=== PATIENT | male | born 1990 | race Caucasian/White ===

== ENCOUNTER 2021-07-25 15:37 | Emergency (ER) | payer SELFPAY ==
--- NOTE | 2021-07-25 16:48 | EDM.PDOC ---
ED HPI GENERAL MEDICAL PROBLEM - General Chief Complaint: Laceration Stated Complaint: R MIDDLE AND R FINGER LACS Time Seen by Provider: 07/25/21 16:25 Source of Information: Reports: Patient, RN Notes Reviewed History Limitations: Reports: No Limitations - History of Present Illness INITIAL COMMENTS - FREE TEXT/NARRATIVE: Patient is a 31-year-old male who presents to the ER for his right middle and ring finger lacerations. Patient states that he was at work, when he got his hand crushed in a ramp. This resulted in a laceration of the patient's posterior right middle finger, and anterior right ring finger. The middle finger laceration does not violate the nail plate, the ring finger laceration does not appear to violate the nail. Both lacerations look to be about 2 cm each, bleeding is under control at this time. Apparently the patient is not up-to-date on his tetanus vaccine, and is refusing it right at this time. Patient denying any numbness or tingling distal to the injury. Right Finger-Middle Pain Score (Numeric/FACES): 4 Right Finger-Ring Pain Score (Numeric/FACES): 4 - Related Data Allergies Allergy/AdvReac Type Severity Reaction Status Date / Time No Known Allergies Allergy Verified 07/25/21 16:32 Home Meds: Home Meds Cefdinir [Omnicef] 300 mg PO BID 7 Days #14 cap 07/25/21 [Rx] Past Medical History - Past Health History Medical/Surgical History: Denies Medical/Surgical History - Infectious Disease History Infectious Disease History: Reports: None Social & Family History - Tobacco Use Tobacco Use Status *Q: Current Every Day Tobacco User Years of Tobacco use: 8 Packs/Tins Daily: 0.3 - Caffeine Use Caffeine Use: Reports: Coffee, Soda - Recreational Drug Use Recreational Drug Use: No ED ROS GENERAL - Review of Systems Review Of Systems: Comprehensive ROS is negative, except as noted in HPI. ED EXAM, SKIN/RASH Exam: See Below Exam Limited By: No Limitations General Appearance: Alert, WD/WN, No Apparent Distress Respiratory/Chest: No Respiratory Distress, Lungs Clear, Normal Breath Sounds, No Accessory Muscle Use, Chest Non-Tender Cardiovascular: Normal Peripheral Pulses, Regular Rate, Rhythm, No Edema Peripheral Pulses: 2+: Radial (L), Radial (R) Extremities: Normal Range of Motion, Normal Capillary Refill Neurological: Alert, Oriented, Normal Cognition, No Motor/Sensory Deficits Psychiatric: Normal Affect, Normal Mood Skin: Warm, Dry, Normal Color, No Rash, Wound/Incision (Wound #1: Right middle finger, posterior laceration does violate nailbed, roughly 2 cm in length. Wound #2: Right ring finger, anterior, 2 cm in length, skin flap versus laceration.) ED SKIN PROCEDURES - Laceration/Wound Repair Right Posterior Distal Digit - 3rd (Middle) Appearance: Subcutaneous, Linear, Clean Distal NVT: Neuro & Vascular Intact, No Tendon Injury Anesthetic Type: Local Local Anesthesia - Lidocaine (Xylocaine): 1% Plain Local Anesthetic Volume: 3cc Skin Prep: Chlorhexidine (Hibiciens), Saline Exploration/Debridement/Repair: Wound Explored, In a Bloodless Field, Explored to Base, No Foreign Material Found Closed with: Sutures Lac/Wound length In cm: 2 Suture Size: 4-0 # of Sutures: 5 Suture Type: Prolene, Interrupted, Simple Sterile Dressing Applied: Nurse Tetanus Status Addressed: Yes Complications: No Right Anterior Distal Digit - 4th (Ring) Appearance: Subcutaneous, Clean Distal NVT: Neuro & Vascular Intact, No Tendon Injury Anesthetic Type: Local Local Anesthesia - Lidocaine (Xylocaine): 1% Plain Local Anesthetic Volume: 2cc Skin Prep: Chlorhexidine (Hibiciens), Saline Exploration/Debridement/Repair: Wound Explored, In a Bloodless Field, Explored to Base, No Foreign Material Found Closed with: Sutures Lac/Wound length In cm: 2 Suture Size: 4-0 # of Sutures: 5 Suture Type: Prolene, Interrupted, Simple Sterile Dressing Applied: Nurse Tetanus Status Addressed: Yes Complications: No - Splinting Right 3rd Digit Splint Site: right middle finger Pre-Procedure NV Status: Normal Post-Procedure NV Status: Normal Splint Material: Aluminum-Foam (cage type splint) Splint Design: Other (aluminum foam cage type pre pretty finger splint) Applied & Form Fitted By: Nurse Provider Post-Splint Application NV Check: NV Status Normal, Good Position Complications: No Course - Vital Signs Last Recorded V/S: Last Vital Signs Temp 97.7 F 07/25/21 16:35 Pulse 53 L 07/25/21 16:35 Resp BP 130/89 07/25/21 16:35 Pulse Ox 100 07/25/21 16:35 - Orders/Labs/Meds Meds: Medications Discontinued Medications Generic Name Dose Route Start Last Admin Trade Name Chauncey PRN Reason Stop Dose Admin Lidocaine HCl 10 ml 07/25/21 17:27 07/25/21 17:38 Lidocaine 1% 10 Ml Mdv INJECT 07/25/21 17:28 10 ml ONETIME ONE Administration - Re-Assessments/Exams Free Text/Narrative Re-Assessment/Exam: 07/25/21 16:56 Patient does appear to have a comminuted fracture of the distal middle finger. This should come back together and alignment fairly well after laceration has been repaired. Patient will need antibiotics and will be started on Omnicef. I could not identify any sort of fracture to the patient's ring finger. Departure - Departure Time of Disposition: 16:47 Disposition: Home, Self-Care 01 Condition: Good Clinical Impression: Laceration of middle finger with damage to nail Qualifiers: Encounter type: initial encounter Foreign body presence: without foreign body Laterality: right Qualified Code(s): S61.312A - Laceration without foreign body of right middle finger with damage to nail, initial encounter Laceration of ring finger with damage to nail Qualifiers: Encounter type: initial encounter Foreign body presence: without foreign body Laterality: right Qualified Code(s): S61.314A - Laceration without foreign body of right ring finger with damage to nail, initial encounter Fracture, finger, distal phalanx, open Qualifiers: Encounter type: initial encounter Finger: middle finger Fracture alignment: displaced Laterality: right Qualified Code(s): S62.632B - Displaced fracture of distal phalanx of right middle finger, initial encounter for open fracture - Discharge Information *PRESCRIPTION DRUG MONITORING PROGRAM REVIEWED*: No *COPY OF PRESCRIPTION DRUG MONITORING REPORT IN PATIENT AILIN: No Prescriptions: Cefdinir [Omnicef] 300 mg PO BID 7 Days #14 cap Instructions: Sutures, [place], or Adhesive Wound Closure, [id number], Finger Fracture, Adult, [id number] Referrals: PCP,None [Primary Care Provider] - Forms: ED Department Discharge Additional Instructions: You have been evaluated in the ED for your laceration. Sutures will need to stay in for 10-14 days. You may return to the ED or any clinic for removal. Please keep this area clean and dry, you may cleanse with regular soap and water. No vigorous scrubbing. Please try to avoid submerging the affected area in water for prolonged periods of time until the sutures are removed. Watch out for signs of infection like increased redness, swelling, pain at the laceration site, or if you should develop any fevers or chills. Please return to ED if your symptoms change or worsen. Care Plan Goals: You have been evaluated in the ED for your right hand injury. You do have what is considered an open fracture of your right middle finger, due to the broken bone in your distal fingertip. This should heal well in about 6 or 8 weeks time. Sutures will need to stay in for roughly 10 to 14 days. You may return to the ED or any clinic for removal. Please keep this area clean and dry, you may cleanse with regular soap and water. No vigorous scrubbing. Please try to avoid submerging the affected area in water for prolonged periods of time until the sutures are removed. You have been placed on an antibiotic, Omnicef 1 tablet 2 times a day for the next 7 days. This medication was electronically sent to the [place] pharmacy located in the [employer] store. You may take 500 mg Tylenol (acetaminophen) or 600 mg ibuprofen (Advil, Motrin) every 6 hours as needed for ongoing pain management. Do not exceed 4000 mg Tylenol or 3200 mg ibuprofen in a 24-hour time span. Please return to ED if your symptoms change or worsen. Sepsis Event Note (ED) - Focused Exam Vital Signs: Vital Signs Temp Pulse BP Pulse Ox 07/25/21 16:35 97.7 F 53 L 130/89 100
--- NOTE | 2021-07-25 17:02 | CR ---
Right hand: 4 views of the right hand were obtained. Comparison: No prior hand exam is available. Slightly comminuted fracture is identified within the distal phalanx of the third finger. Minimal displacement is seen. Soft tissue swelling is present. No additional abnormality is appreciated. Impression: 1. Slightly comminuted fracture within the distal phalanx of the right third finger with minimal displacement. 2. Soft tissue swelling. Diagnostic code #3
[2021-07-25] MEDS ORDERED: Lidocaine 1% 10 ML MDV INJECT ONE (17:27)
== END 2021-07-25 18:30 | disposition home or self-care (01) ==
LOC: JD.ED 15:37
DX: S62.632A Displaced fracture of distal phalanx of right middle finger, initial encounter for closed fracture (principal); S61.312A Laceration without foreign body of right middle finger with damage to nail, initial encounter; S61.314A Laceration without foreign body of right ring finger with damage to nail, initial encounter; W23.0XXA Caught, crushed, jammed, or pinched between moving objects, initial encounter; Z72.0 Tobacco use
CPT/HCPCS: 12002; 73130-26-RT; 73130-RT; 99283-25